=== PATIENT | female | born 1980 | race Caucasian/White ===

== ENCOUNTER → 2019-07-29 | Outpatient (CLI) | payer OTHER ==
--- NOTE | 2019-07-29 16:47 | XR ---
EXAMINATION TYPE: XR chest 2V DATE OF EXAM: 07/29/2019 COMPARISON: NONE HISTORY: Chest pain TECHNIQUE: FINDINGS: There is some airspace infiltrate posterior basal segment left lower lobe. The other lung f ields are clear. Heart and mediastinum are normal. Diaphragm is normal. IMPRESSION: Left lower lobe pneumonia. Normal heart.
== END | disposition home or self-care (01) ==
LOC: RADXRMAIN 16:31
PROVIDERS: ATTEND Emergency Medicine
DX: J18.9 Pneumonia, unspecified organism (principal)
CPT/HCPCS: 71046